=== PATIENT | female | born 1945 | race Caucasian/White ===

== ENCOUNTER 2024-06-22 13:41 | Outpatient (RCR) | payer MEDICARE, SELFPAY | END 2024-08-17 13:56 | disposition home or self-care (01) | LOC: HO.WCC 13:41 | PROVIDERS: PCP Student in an Organized Health Care Education/Training Program; Visit Provider Surgery | DX: E11.622 Type 2 diabetes mellitus with other skin ulcer (principal); L97.812 Non-pressure chronic ulcer of other part of right lower leg with fat layer exposed; L97.822 Non-pressure chronic ulcer of other part of left lower leg with fat layer exposed; E11.40 Type 2 diabetes mellitus with diabetic neuropathy, unspecified; E11.51 Type 2 diabetes mellitus with diabetic peripheral angiopathy without gangrene; Q82.0 Hereditary lymphedema; I11.0 Hypertensive heart disease with heart failure; I50.9 Heart failure, unspecified; Z79.84 Long term (current) use of oral hypoglycemic drugs; Z79.891 Long term (current) use of opiate analgesic; Z79.899 Other long term (current) drug therapy; Z87.891 Personal history of nicotine dependence | CPT/HCPCS: 11042; 11043; 11045; 11046; 97597 ==